=== PATIENT | male | born 1980 | race African-American/Black ===

== ENCOUNTER 2021-08-24 12:42 | Emergency (ER) | payer OTHER ==
[~2021-08-24] VITALS: Ht 180.3 cm; Wt 83.4 kg
[2021-08-24] MEDS ORDERED: ONDANSETRON HCL 4 MG/2 ML VIAL ONE (12:48)
[2021-08-24] MEDS ORDERED: MORPHINE SULFATE 4 MG/ML SYRINGE ONE (12:48)
[2021-08-24] MEDS ORDERED: ONDANSETRON HCL 4 MG/2 ML VIAL IVP ONE (13:00)
[2021-08-24] MEDS ORDERED: MORPHINE SULFATE 4 MG/ML SYRINGE IVP ONE (13:00)
[2021-08-24 13:20] LABS: BASOPHILS % (AUTO) 0.5 % (0.0-2.0); HEMATOCRIT 36.5 % (41-53); HEMOGLOBIN 11.8 g/dL (13.5-17.5); LYMPHOCYTES # (AUTO) 1.6 K/uL (1.0-4.8); MEAN CORPUSCULAR HEMOGLOBIN 24.6 pg (26.0-34.0); MEAN CORPUSCULAR HGB CONC 32.3 G/dL (31.0-37.0); MEAN CORPUSCULAR VOLUME 76 fL (80-100); MONOCYTES # (AUTO) 0.3 K/uL (0.1-1.0); MONOCYTES % (AUTO) 5.8 % (2.0-9.0); NEUTROPHILS # (AUTO) 2.8 K/uL (1.8-7.7); NEUTROPHILS % (AUTO) 58.7 % (40.0-70.0); PLATELET COUNT (AUTO) 270 K/uL (150-450); RED BLOOD CELL COUNT(AUTO) 4.79 MIL/uL (4.50-5.90); RED CELL DISTRIBUTION WIDTH 19.1 % (11.5-14.5)
[2021-08-24] MEDS ORDERED: CeFAZolin 1 GM/DEXTROSE 50 ML IV ONE (13:30)
[2021-08-24 13:31] LABS: ANION GAP 8 mmol/L (8-16); CARBON DIOXIDE 29 mmol/L (22-29); CHLORIDE 106 mmol/L (98-107); CREATININE 1.09 mg/dL (0.60-1.30); GLOMERULAR FILTR. RATE CALC > 60 mL/min (>60); GLUCOSE,RANDOM 112 mg/dL (70-110); POTASSIUM 3.9 mmol/L (3.5-5.1); SODIUM SERUM 143 mmol/L (136-145); UREA NITROGEN, BLOOD 7 mg/dL (7-18)
[2021-08-24 13:37] LABS: ALANINE AMINOTRANSFERASE 37 U/L (12-78); ALBUMIN 3.2 g/dL (3.4-5.0); ALKALINE PHOSPHATASE 77 U/L (46-116); ASPARTATE AMINOTRANSFERASE 30 U/L (15-37); BILIRUBIN,TOTAL 0.2 mg/dL (0.1-1.0); INR 0.9 (0.9-1.1); PROTHROMBIN TIME 9.9 SEC (9.4-11.6); TOTAL PROTEIN, SERUM 6.3 g/dL (6.4-8.2)
[2021-08-24 15:11] VITALS: BP 118/76
== END 2021-08-24 15:39 | disposition left against medical advice (07) ==
LOC: EDBD 12:44 → EMS 12:44
DX: S31.135A Puncture wound of abdominal wall without foreign body, periumbilic region without penetration into peritoneal cavity, initial encounter (principal); S01.81XA Laceration without foreign body of other part of head, initial encounter; Z76.5 Malingerer [conscious simulation]; X95.8XXA Assault by other firearm discharge, initial encounter; Y93.89 Activity, other specified; Y92.89 Other specified places as the place of occurrence of the external cause; Y99.8 Other external cause status
CPT/HCPCS: 36415; 70450; 70486; 71045; 71250; 72125; 73090; 73130; 74018; 74176; 80053; 85025; 85610; 85730; 96365; 96375; 99291; J0690; J2270; J2405; 72192; 74150